=== PATIENT | male | born 1975 | race Caucasian/White ===

== ENCOUNTER → 2017-03-19 | Outpatient (CLI) | payer OTHER ==
[~2017-03-19] MED LIST: NO HOME MEDICATIONS; PRILOSEC 20MG20 MG PO
== END ==
LOC: COL.RAD 03-12 13:15
DX: N28.1 Cyst of kidney, acquired (principal)

== ENCOUNTER 2018-09-29 12:50 | Outpatient (RCR) | payer OTHER | END 2018-12-28 | disposition home or self-care (01) | LOC: WSOH | DX: S46.811A Strain of other muscles, fascia and tendons at shoulder and upper arm level, right arm, initial encounter (principal); X50.0XXA Overexertion from strenuous movement or load, initial encounter; Y93.39 Activity, other involving climbing, rappelling and jumping off; Y92.812 Truck as the place of occurrence of the external cause; Y99.0 Civilian activity done for income or pay ==